=== PATIENT | male | born 1965 | race Asian ===

== ENCOUNTER 2017-03-02 12:44 | Day surgery (SDC) | payer OTHER ==
[~2017-03-02] VITALS: Ht 167.6 cm; Wt 78.0 kg
[2017-03-02 15:51] VITALS: Ht 167.6 cm; Wt 78.0 kg
[2017-03-02] MEDS ORDERED: FLUOXETINE (15:56)
[2017-03-02 17:08] VITALS: BP 137/85; PULSE 58; RESP 19
--- NOTE | 2017-03-02 17:49 | PRO ---
Date/Time of Note Date/Time of Note DATE: 03/02/17 TIME: 17:45 Conscious Sedation PROCEDURE NOTE Start Time: 17:15 Stop Time: 17:45 PROCEDURE: * Colonoscopy INDICATION: [Colorectal cancer screening] PROCEDURE BOOKMOBILE LIBRARIAN: Dr Noonan CONSENT: Consent: Discussion of risks and benefits of conscious, including, but not limited to (respiratory depression, over-sedation, and hematoma at IV site) were discussed with family. PROCEDURE SUMMARY: [Moderate] sedation was achieved using [Versed 5 mg] and [fentanyl 100 mcg]. Patient was monitored throughout the time of sedation, and I attest to being present during the entire course of sedation ESTIMATED BLOOD LOSS: [None] Summary of findings/impression * Normal colonic mucosa to cecum. * Moderate-sized internal hemorrhoids. Plan: * High-fiber diet, annual Hemoccult stool testing, screening colonoscopy in 10 years AMY NOONAN MD Mar 02, 2017 17:48
[2017-03-02] MEDS ORDERED: MIDAZOLAM 1 MG/ML 2 ML INJ ONE ×3 (17:55)
[2017-03-02] MEDS ORDERED: FENTAnyl 50 MCG/ML VIAL ONE (17:55)
[2017-03-02 18:11] VITALS: BP 128/82; PULSE 60; RESP 14
== END 2017-03-02 18:39 | disposition home or self-care (01) ==
LOC: GIL 12:44
PROVIDERS: ATTEND Internal Medicine Gastroenterology
DX: Z12.11 Encounter for screening for malignant neoplasm of colon (principal); K64.8 Other hemorrhoids
CPT/HCPCS: 45378; J2250; J3010